=== PATIENT | female | born 1940 | race Caucasian/White ===

== ENCOUNTER 2016-05-09 15:38 | Emergency (ER) | payer MEDICARE, OTHER ==
[2016-05-09 15:46] VITALS: TEMP 97.7
--- NOTE | 2016-05-09 16:57 | CPEKG ---
Heart Rate: 83 RR Interval: 723 P-R Interval: 160 QRSD Interval: 110 QT Interval: 328 QTC Interval: 386 P [place]: 44 QRS [place]: -28 T Wave [place]: 179 EKG Severity - ABNORMAL ECG - EKG Impression: SINUS RHYTHM EKG Impression: NONSPECIFIC INTRAVENTRICULAR CONDUCTION DELAY EKG Impression: BORDERLINE R WAVE PROGRESSION, ANTERIOR LEADS EKG Impression: MINIMAL ST DEPRESSION, LATERAL LEADS Electronically Signed By: Mike Adhikari 11-May-2016 09:42:20
--- NOTE | 2016-05-09 17:12 | EDPHY ---
HPI/HX/ROS/PE/MDM Narrative: CHIEF COMPLAINT: Shortness of breath HPI: The patient is a 76 y/o female, with a significant cardiac history, complaining of shortness of breath and a cough for the last few days. She has a history of hypertension and CAD with an LAD stent placed in 2010. She says this past week a "cold went into my throat and down into my chest and stayed there like cement!" Her cough is nonproductive and not associated with fever, chest pain, or leg swelling. She does have associated rhinorrhea. REVIEW OF SYSTEMS: Aside from elements discussed in the HPI, a comprehensive 10-point review of systems was reviewed and is negative. PMH: Hypertension, LAD stent 2010, cataract surgery, cholecystectomy, hysterectomy, salpingo-oophorectomy SOCIAL HISTORY: Prior medical records reviewed including admission 04/09/10 for nausea and dizziness and ultimately received an LAD stent. PHYSICAL EXAM: General:Patient is alert, in no acute distress. ENT:Eyes are normal to inspection. ENT inspection shows rhinorrhea, otherwise normal. Neck: Normal inspection. Full range of motion. Respiratory:No respiratory distress. Breath sounds normal bilaterally. Mild rales and mils expiratory wheezing bilaterally. Cardiovascular: Regular rate and rhythm. Strong peripheral pulses. Normal cap refill. Abdomen:The abdomen is nontender to palpation. There are no peritoneal signs. There are normal bowel sounds. Back: Normal to inspection. No tenderness to palpation. Skin: Normal color. No rash. Warm and dry. Extremities: Normal appearance. Full range of motion. Neuro: Oriented x3. Normal motor function. Normal sensory function. ED Course: Study: Chest x-ray Indication: Dyspnea, cough Results: Chest x-ray was obtained. The results of the study are findings consistent with airways disease are noted with no superimposed pneumonia identified. The study was read by the radiologist, Dr. Gardner. I viewed the images myself on the PACS system. The 12 lead EKG was interpreted by myself. See hard copy and/or "tracemaster" electronic copy for interpretation. 1754: Reevaluated patient and discussed work up. She is declining further work up for her symptoms and is requesting antibiotics and cough medication to take home. She will be discharged with azithromycin, Tessalon pearls, and recommendation to follow up with her PCP as needed. She agrees with plan. 1809: RN went to discharge patient and noticed her SpO2 was at 87%. Will abort plan to discharge. 1850: Reevaluated patient and discussed hypoxemia. After we negotiated at length , she agrees to blood work. Labs draw including CBC, CHEM, troponin, BNP. MDM: This patient presents with signs and symptoms of bronchitis complicated by a low oxygen readings. The patient is in no acute distress. She adamantly refuses admission to the hospital. She understands that she is at risk of worsening of condition given hypoxia. She promises to follow up with her physician and return for any worsening of condition. She appears to have capacity to make this decision and her agrees. General Time Seen by Provider: 05/09/16 16:33 Initial Vital Signs: Initial Vital Signs O2 Sat (%) 94 05/09/16 15:38 O2 Delivery Mode Room Air O2 (L/minute) 2 Allergies/Adverse Reactions: bacitracin [From Neosporin] Allergy (Intermediate, Verified 05/09/16 15:46) Hives bacitracin zinc [From Neosporin] Allergy (Intermediate, Verified 05/09/16 15:46) Hives gramicidin D [From Neosporin] Allergy (Intermediate, Verified 05/09/16 15:46) Hives levofloxacin [From Levaquin] Allergy (Intermediate, Verified 05/09/16 15:46) tongue swells/breaks out neomycin sulfate [From Neosporin] Allergy (Intermediate, Verified 05/09/16 15:46 ) Hives polymyxin B [From Neosporin] Allergy (Intermediate, Verified 05/09/16 15:46) Hives polymyxin B sulfate [From Neosporin] Allergy (Intermediate, Verified 05/09/16 15 :46) Hives aspirin [From Percodan] Allergy (Verified 05/09/16 15:46) oxycodone HCl [From Percodan] Allergy (Verified 05/09/16 15:46) oxycodone terephthalate [From Percodan] Allergy (Verified 05/09/16 15:46) FULVISON Allergy (Uncoded 04/09/10 09:16) Unknown Home Medications: Medication Instructions Recorded AZITHROMYCIN [Z-PACK] 250 mg PO DAILY 5 Days 05/09/16 Benzonatate [Tessalon Pearles (RX)] 100 mg PO TID PRN #15 cap 05/09/16 Candesartan Cilexetil [Atacand] 4 mg PO DAILY 05/09/16 HYDROCHLOROTHIAZIDE 12.5 mg PO DAILY 05/09/16 [HYDROCHLOROTHIAZIDE] Departure - Departure Disposition: Home, Routine, Self-Care Clinical Impression: Cough, Shortness of breath, Bronchitis, Hypoxemia Condition: Good Instructions: Benzonatate (By mouth), Azithromycin (By mouth), Acute Bronchitis (ED) Additional Instructions: 1. Take azithromycin as prescribed. Be sure to complete the entire prescription. 2. Use Tessalon pearls as prescribed when needed for cough. 3. Follow up with your primary care provider early next week for symptoms not improved. Referrals: Sahra Chan, PAC [Primary Care Provider] - As per Instructions Prescriptions: AZITHROMYCIN [Z-PACK] 250 mg PO DAILY 5 Days Benzonatate [Tessalon Pearles (RX)] 100 mg PO TID PRN #15 cap PRN Reason: Cough, Severe Report Scribed for: Hugo Tinoco Report Scribed by: Asha Pete Date of Report: 05/09/16 Time of Report: 17:12 Physician Review and Approval Statement: Portions of this note were transcribed by an ED scribe. I personally performed the history, physical exam, and medical decision making; and confirm the accuracy of the information in the transcribed note.
[2016-05-09 19:27] LABS: % IMMATURE GRANULYOCYTES 0.1 % (0.0-1.1); ABSOLUTE IMMATURE GRANULOCYTES 0.01 10^3/uL (0.00-0.10); ADD DIFF? NO; ADD MORPH? NO; ADD SCAN? NO; ATYPICAL LYMPHOCYTE FLAG 10 (0-99); FRAGMENT RBC FLAG 0 (0-99); HEMATOCRIT 42.1 % (38.0-47.0); HEMOGLOBIN 13.4 g/dL (12.6-16.3); LEFT SHIFT FLG 0 (0-99); LIPEMIA HEMOLYSIS FLAG 80 (0-99); MEAN CELL HEMOGLOBIN 25.8 pg (27.9-34.1); MEAN CELL HEMOGLOBIN CONCENTR. 31.8 g/dL (32.4-36.7); MEAN CELL VOLUME 81.1 fL (81.5-99.8); MEAN PLATELET VOLUME 10.1 fL (8.7-11.7); PLATELET CLUMPS FLAG 0 (0-99); PLATELET COUNT 137 10^3/uL (150-400); RED BLOOD CELL COUNT 5.19 10^6/uL (4.18-5.33); RED CELL DISTRIBUTION WIDTH 14.1 % (11.5-15.2)
[2016-05-09 19:45] LABS: ANION GAP 10 mEq/L (8-16); CALCIUM 8.8 mg/dL (8.5-10.4); CARBON DIOXIDE 28 mEq/l (22-31); CHLORIDE 100 mEq/L (97-110); CREATININE 0.9 mg/dL (0.6-1.0); GLOMERULAR FILTRATION RATE > 60; GLUCOSE 97 mg/dL (70-100); POTASSIUM 4.5 mEq/L (3.5-5.2); SODIUM 138 mEq/L (134-144); SPECIMEN HEMOLYSIS 161
[2016-05-09 19:57] LABS: TROPONIN I 0.017 ng/mL (0-0.034)
[2016-05-09] MEDS ORDERED: AZITHROMYCIN 250 MG TAB PO ONE (20:01)
[2016-05-09 20:22] VITALS: BP 121/72; PULSE 76; RESP 18; O2SAT 89
== END 2016-05-09 20:21 | disposition home or self-care (01) ==
DX: J20.9 Acute bronchitis, unspecified (principal); R09.02 Hypoxemia; I10 Essential (primary) hypertension

== ENCOUNTER 2016-05-11 12:36 | Inpatient (IN) | payer OTHER, MEDICARE ==
--- NOTE | 2016-05-11 12:55 | EDPHY ---
H & P Stated Complaint: Patient sent by PCP for low 02 saturation Time Seen by Provider: 05/11/16 12:49 HPI/ROS: CHIEF COMPLAINT: Cough, shortness of breath. HISTORY OF PRESENT ILLNESS: The patient is a 76-year-old female who presents with productive cough and difficulty breathing. She was seen in the ED on Wednesday and diagnosed with bronchitis. She has been taking Azithromycin since then. Since discharge she has had increased difficulty breathing and shortness of breath worsened when she lies flat. Her cough is productive with clear sputum. She had a low-grade fever last night. She visited her primary care provider earlier today and her oxygen was noted to be 73% there. No chills, chest pain, palpitations, vomiting, diarrhea, urinary complaints, headache, lightheadedness. She is not anticoagulated on blood-thinners. REVIEW OF SYSTEMS: Aside from elements discussed in the HPI, a comprehensive 10-point review of systems was reviewed and is negative. PAST MEDICAL HISTORY: Hypertension, LAD stent in 2010, hysterectomy, salpingo- oophorectomy, cholecystectomy, cataract surgery. SOCIAL HISTORY: . VITAL SIGNS: Reviewed by me GENERAL: Elderly female, bright, alert, very frequent cough. Slightly short of breath. HEENT: Atraumatic. Eyes: No icterus, no injection. Mouth: moist mucous membranes. No erythema or lesions. Neck: supple with no adenopathy. LUNGS: Crackles at bilateral bases, right greater than left. Scattered wheezes. No rhonchi or rales. CARDIAC: Regular rate and rhythm, no rubs, murmurs or gallops. ABDOMEN: Soft, nontender, nondistended, bowel sounds normal. BACK: No CVA tenderness. EXTREMITIES: No trauma. No edema. Range of motion is normal throughout. NEURO: Alert and oriented, grossly nonfocal. SKIN: Warm and dry, no rash. PSYCHIATRIC: Normal mentation, no agitation. Portions of this note were transcribed by a medical file clerk. I personally performed a history, physical exam, medical decision making, and confirmed accuracy of information the transcribed note. Source: Patient Exam Limitations: No limitations - Personal History Current Tetanus/Diphtheria Vaccine: Yes Current Tetanus Diphtheria and Acellular Pertussis (TDAP): Yes - Medical/Surgical History Hx Asthma: Yes Hx Chronic Respiratory Disease: Yes Hx Diabetes: No Hx Cardiac Disease: Yes Hx Renal Disease: No Hx Cirrhosis: No Hx Alcoholism: No Hx HIV/AIDS: No Hx Splenectomy or Spleen Trauma: No Other PMH: HTN - Social History Smoking Status: Former smoker Constitutional: Initial Vital Signs Heart Rate 90 05/11/16 12:42 Respiratory Rate 18 05/11/16 12:42 Blood Pressure 153/79 H 05/11/16 12:42 O2 Sat (%) 75 L 05/11/16 12:42 O2 Delivery Mode Room Air O2 (L/minute) 3 Allergies/Adverse Reactions: bacitracin [From Neosporin] Allergy (Intermediate, Verified 05/09/16 15:46) Hives bacitracin zinc [From Neosporin] Allergy (Intermediate, Verified 05/09/16 15:46) Hives gramicidin D [From Neosporin] Allergy (Intermediate, Verified 05/09/16 15:46) Hives levofloxacin [From Levaquin] Allergy (Intermediate, Verified 05/09/16 15:46) tongue swells/breaks out neomycin sulfate [From Neosporin] Allergy (Intermediate, Verified 05/09/16 15:46 ) Hives polymyxin B [From Neosporin] Allergy (Intermediate, Verified 05/09/16 15:46) Hives polymyxin B sulfate [From Neosporin] Allergy (Intermediate, Verified 05/09/16 15 :46) Hives aspirin [From Percodan] Allergy (Verified 05/09/16 15:46) oxycodone HCl [From Percodan] Allergy (Verified 05/09/16 15:46) oxycodone terephthalate [From Percodan] Allergy (Verified 05/09/16 15:46) FULVISON Allergy (Uncoded 04/09/10 09:16) Unknown Home Medications: Medication Instructions Recorded Candesartan Cilexetil [Atacand] 4 mg PO DAILY 05/09/16 HYDROCHLOROTHIAZIDE 12.5 mg PO DAILY 05/09/16 [HYDROCHLOROTHIAZIDE] Colestipol HCl [Colestipol HCl] 2.5 g PO DAILY 05/11/16 Medical Decision Making - Diagnostics EKG Interpretation: 12-LEAD EKG: Please see the full report in Trace Master. My interpretation: Normal sinus rhythm, borderline IVCD. Imaging: X-ray chest was obtained. I viewed the images myself on the PACS system. My interpretation of the images is: no acute cardiopulmonary disease. The radiologist interpretation is pending at this time. I discussed the x-ray findings with the patient. ED Course/Re-evaluation: An IV was established and labs ordered. Chest x-ray obtained. 3ml IH Albuterol administered for bronchospasm. Troponin elevated at .133. D-dimer normal. BNP elevated at 18 30, BNP was normal 2 days ago. 1359: Consulted with Ashia Lyons, hospitalist. She accepts admission for Dr. Bacon. Suspect patient's significant hypoxia shortness of breath as well as her pulmonary examination with crackles and coughing may represent cardiac failure concomitant with infectious causes. 1433: Reassessed patient. She does not feel improved after DuoNeb but on exam she does have fewer wheezes. She still has bibasilar crackles, worse on the left than the right. She is still coughing persistently. Differential Diagnosis: Differential diagnosis for the patient's shortness of breath was considered including but not limited to pulmonary infectious processes, COPD exacerbation, pulmonary emboli, pulmonary edema, congestive heart failure, and cardiac causes. Consult/Admit Bed Type: Dr. Ronnie Bacon, U - Data Points Laboratory Results: Laboratory Results 05/11/16 13:05 05/11/16 13:05 05/11/16 05/11/16 05/11/16 13:35 13:06 13:05 WBC RBC Hgb Hct MCV MCH MCHC RDW Plt Count MPV Neut % (Auto) Lymph % (Auto) Villal[place] % (Auto) Eos % (Auto) Baso % (Auto) Nucleat RBC Rel Count Absolute Neuts (auto) Absolute Lymphs (auto) Absolute Monos (auto) Absolute Eos (auto) Absolute Basos (auto) Absolute Nucleated RBC Immature Gran % Immature Gran # D-Dimer 0.34 ug/mLFEU ug/mLFEU (0.00-0.50) VBG Lactic Acid Sodium Potassium Chloride Carbon Dioxide Anion Gap BUN Creatinine Estimated GFR Glucose Calcium Total Bilirubin Conjugated Bilirubin Unconjugated Bilirubin AST ALT Alkaline Phosphatase Troponin I NT-Pro-B Natriuret Pep 1820 pg/mL H pg/mL (0-125) Total Protein Albumin Influenza A & B (PCR) NEGATIVE FOR FLU (NEGATIVE) 05/11/16 05/11/16 05/11/16 13:05 13:05 13:05 WBC 7.47 10^3/uL 10^3/uL (3.80-9.50) RBC 5.18 10^6/uL 10^6/uL (4.18-5.33) Hgb 13.0 g/dL g/dL (12.6-16.3) Hct 40.7 % % (38.0-47.0) MCV 78.6 fL L fL (81.5-99.8) MCH 25.1 pg L pg (27.9-34.1) MCHC 31.9 g/dL L g/dL (32.4-36.7) RDW 14.4 % % (11.5-15.2) Plt Count 164 10^3/uL 10^3/uL (150-400) MPV 9.9 fL fL (8.7-11.7) Neut % (Auto) 76.6 % H % (39.3-74.2) Lymph % (Auto) 12.6 % L % (15.0-45.0) [place] % (Auto) 10.3 % % (4.5-13.0) Eos % (Auto) 0.0 % L % (0.6-7.6) Baso % (Auto) 0.1 % L % (0.3-1.7) Nucleat RBC Rel Count 0.0 % % (0.0-0.2) Absolute Neuts (auto) 5.72 10^3/uL 10^3/uL (1.70-6.50) Absolute Lymphs (auto) 0.94 10^3/uL L 10^3/uL (1.00-3.00) Absolute Monos (auto) 0.77 10^3/uL 10^3/uL (0.30-0.80) Absolute Eos (auto) 0.00 10^3/uL L 10^3/uL (0.03-0.40) Absolute Basos (auto) 0.01 10^3/uL L 10^3/uL (0.02-0.10) Absolute Nucleated RBC 0.00 10^3/uL 10^3/uL (0-0.01) Immature Gran % 0.4 % % (0.0-1.1) Immature Gran # 0.03 10^3/uL 10^3/uL (0.00-0.10) D-Dimer VBG Lactic Acid 1.4 mmol/L mmol/L (0.7-2.1) Sodium 140 mEq/L mEq/L (134-144) Potassium 3.8 mEq/L mEq/L (3.5-5.2) Chloride 99 mEq/L mEq/L (97-110) Carbon Dioxide 29 mEq/l mEq/l (22-31) Anion Gap 12 mEq/L mEq/L (8-16) BUN 21 mg/dL mg/dL (7-23) Creatinine 1.0 mg/dL mg/dL (0.6-1.0) Estimated GFR 54 Glucose 111 mg/dL H mg/dL (70-100) Calcium 9.0 mg/dL mg/dL (8.5-10.4) Total Bilirubin 0.9 mg/dL mg/dL (0.1-1.4) Conjugated Bilirubin 0.3 mg/dL mg/dL (0.0-0.5) Unconjugated Bilirubin 0.6 mg/dL mg/dL (0.0-1.1) AST 26 IU/L IU/L (14-46) ALT 28 IU/L IU/L (9-52) Alkaline Phosphatase 56 IU/L IU/L (38-126) Troponin I 0.133 ng/mL H ng/mL (0-0.034) NT-Pro-B Natriuret Pep Total Protein 6.8 g/dL g/dL (6.3-8.2) Albumin 4.0 g/dL g/dL (3.5-5.0) Influenza A & B (PCR) Medications Given: Discontinued Medications Albuterol (Proventil Neb) 3 ml IH EDNOW ONE Stop: 05/11/16 14:36 Last Admin: 05/11/16 14:56 Dose: 3 ml Albuterol/Ipratropium (Duoneb) 3 ml IH EDNOW ONE Stop: 05/11/16 13:15 Last Admin: 05/11/16 13:35 Dose: 3 ml Sodium Chloride (Ns) 1,000 mls @ 0 mls/hr IV ONCE ONE PRN Reason: Wide Open Stop: 05/11/16 13:01 Last Admin: 05/11/16 13:30 Dose: 1,000 mls Ceftriaxone Sodium 2 gm/ (Dextrose) 50 mls @ 100 mls/hr IV EDNOW ONE PRN Reason: Protocol Stop: 05/11/16 14:22 Last Admin: 05/11/16 14:39 Dose: 50 mls Methylprednisolone Sodium Succinate (Solu-Medrol) 125 mg IVP EDNOW ONE Stop: 05/11/16 14:35 Last Admin: 05/11/16 14:57 Dose: 125 mg Departure - Departure Disposition: [facility] Inpatient Acute Clinical Impression: Bronchitis, Shortness of breath, Elevated troponin, Congestive heart failure Condition: Fair Report Scribed for: Celeste Zazueta Report Scribed by: Steve Medina Date of Report: 05/11/16 Time of Report: 12:50
[2016-05-11] MEDS ORDERED: NS 1,000 ML IV ONE (13:00)
[2016-05-11] MEDS ORDERED: IPRATROPIUM/ALBUTEROL 3 ML DEYVIAL ONE (13:14)
[2016-05-11] MEDS ORDERED: IPRATROPIUM/ALBUTEROL 3 ML DEYVIAL IH ONE (13:14)
[2016-05-11 13:21] LABS: % IMMATURE GRANULYOCYTES 0.4 % (0.0-1.1); ABSOLUTE IMMATURE GRANULOCYTES 0.03 10^3/uL (0.00-0.10); ADD DIFF? NO; ADD MORPH? NO; ADD SCAN? NO; ATYPICAL LYMPHOCYTE FLAG 30 (0-99); FRAGMENT RBC FLAG 0 (0-99); HEMATOCRIT 40.7 % (38.0-47.0); LEFT SHIFT FLG 0 (0-99); LIPEMIA HEMOLYSIS FLAG 80 (0-99); MEAN CELL HEMOGLOBIN 25.1 pg (27.9-34.1); MEAN CELL HEMOGLOBIN CONCENTR. 31.9 g/dL (32.4-36.7); MEAN CELL VOLUME 78.6 fL (81.5-99.8); MEAN PLATELET VOLUME 9.9 fL (8.7-11.7); PLATELET CLUMPS FLAG 0 (0-99); PLATELET COUNT 164 10^3/uL (150-400); RED BLOOD CELL COUNT 5.18 10^6/uL (4.18-5.33); RED CELL DISTRIBUTION WIDTH 14.4 % (11.5-15.2)
[2016-05-11 13:39] LABS: ALANINE AMINOTRANSFERASE 28 IU/L (9-52); ALKALINE PHOSPHATASE 56 IU/L (38-126); ANION GAP 12 mEq/L (8-16); ASPARTATE AMINOTRANSFERASE 26 IU/L (14-46); BILIRUBIN,TOTAL 0.9 mg/dL (0.1-1.4); BILIRUBIN-CONJUGATED 0.3 mg/dL (0.0-0.5); BILIRUBIN-UNCONJUGATED 0.6 mg/dL (0.0-1.1); CARBON DIOXIDE 29 mEq/l (22-31); CHLORIDE 99 mEq/L (97-110); GLOMERULAR FILTRATION RATE 54; GLUCOSE 111 mg/dL (70-100); POTASSIUM 3.8 mEq/L (3.5-5.2); TOTAL PROTEIN 6.8 g/dL (6.3-8.2)
[2016-05-11 13:50] LABS: TROPONIN I 0.133 ng/mL (0-0.034)
[2016-05-11] MEDS ORDERED: cefTRIAXone 2 GM in D5W 50 ML IV ONE (13:53)
--- NOTE | 2016-05-11 14:06 | CPEKG ---
Heart Rate: 86 RR Interval: 698 P-R Interval: 144 QRSD Interval: 108 QT Interval: 372 QTC Interval: 445 P [place]: 58 QRS [place]: -32 T Wave [place]: -83 EKG Severity - ABNORMAL ECG - EKG Impression: SINUS RHYTHM EKG Impression: BORDERLINE IVCD WITH LAD EKG Impression: NONSPECIFIC REPOL ABNORMALITY, DIFFUSE LEADS Electronically Signed By: Celeste Zazutea 11-May-2016 17:53:12
[2016-05-11] MEDS ORDERED: ASPIRIN 81 MG CHEWABLE TAB ONE (14:10)
[2016-05-11 14:17] LABS: SODIUM 140 mEq/L (134-144)
[2016-05-11] MEDS ORDERED: methylPREDNISolone SOD SUCC 125 MG/2 ML VIAL IVP ONE (14:34)
[2016-05-11] MEDS ORDERED: ALBUTEROL 3 ML DEYVIAL IH ONE (14:35)
[2016-05-11] MEDS ORDERED: ALBUTEROL 60 PUFFS/8 GM MDI IH PRN (15:09)
[2016-05-11] MEDS ORDERED: ZOLPIDEM TARTRATE 5 MG TAB PO PRN (15:09)
[2016-05-11] MEDS ORDERED: PROMETHAZINE HCL 25 MG/ML INJ IVP PRN (15:09)
[2016-05-11] MEDS ORDERED: IOPAMIDOL (ISOVUE 370) 100 ML BTL IV ONE (15:17)
--- NOTE | 2016-05-11 15:28 | PDGENHP ---
History and Physical History and Physical: HISTORY AND PHYSICAL CC: cough and shortness of breath HISTORY: This patient started with cough and chest congestion about 5 days ago. The cough has worsened but has a nonproductive cough. Only time she has had any fever is a 100 degree temperature last evening. There were no rigors with that. She has not had any upper respiratory symptoms otherwise, and is not any chest pain, leg swelling or leg pain. However importantly she has began to get short of breath. This probably started 2 days ago but has progressed to the point where she has significant exertional dyspnea after walking just about 5 feet. She also does notice orthopnea and significant increasing coughing with lying down. She was seen here 2 days ago and had unremarkable labs chest x -ray but was started on azithromycin. Things have actually worsened since she has been on the azithromycin. She has no history of lung disease but smoked for 8 years having quit 40 years ago. She has a history of a left coronary stent in 2010. The only time she had any heart failure was when she presented at that time with some shortness of breath. Dr. Singer is her air brush operator ROS: A comprehensive 10 system review revealed no other significant findings PAST MEDICAL HISTORY: Coronary artery disease with left anterior descending stent 2010 Hypertension Chronic diarrhea after cholecystectomy Cholecystectomy Cataract surgery Hysterectomy and ovaries are out FAMILY MEDICAL HISTORY: mother had myocardial infarction, father had stroke, both at older ages in their 70s and 80s SOCIAL HISTORY: she is and her is here at the bedside with her and very supportive. He is her surrogate decision maker Quit smoking 40 years ago after 8 years of smoking, no alcohol or drugs She is a retired commercial management accountant MEDICATIONS: The patients list has been reconciled by our clinical pharmacist in the EMR. I have reviewed the list and ordered appropriate medicines. PHYSICAL EXAMINATION: Vital Signs: mild systolic hypertension upon arrival which has now normalized, otherwise normal vitals with no fever She is hypoxemic requiring oxygen which is new for her Minister Helper: sinus rhythm Examination: General: alert, oriented, good mentation, relaxed Skin: warm, dry, good color, no rash HEENT: normal Neck: no mass or jvd Resps: relaxed but she coughs frequently and cough with each effort to take a deep breath Lungs: clear breath sounds Heart: regular, no murmur Abdomen: soft, nondistended, nontender, +BS, no mass Upper Extremities: normal Lower Extremities: no edema, warm No Bleeding or bruising Neurologic: normal speech/language, normal penetration tester, no focal weakness IV site: looks normal LABORATORY DATA: a D-dimer was ordered but is pending, troponin 2 days ago was unremarkable but is minimally elevated at 0.13 today RADIOLOGY STUDIES: I reviewed chest x-rays from today and 2 days ago both done here, my personal interpretation: There is no for infiltrate, heart failure, mass, infusion in either chest x-ray. The radiologist is mentioning airways disease but there is not hyperexpansion of the lungs on my review these images. There may be some bronchitic changes. 12 lead EKG, my personal interpretation of the tracing: sinus rhythm, with some diffuse ST segment abnormality associated with a conduction abnormality that is nonspecific. This is unchanged from 2 days ago. ASSESSMENT: * ACUTE RESPIRATORY FAILURE * UNCERTAIN MECHANISM OF HYPOXEMIA -Given her smoking history suspect he may have some underlying COPD but could not rule out PE at this time ; there is nothing to explain her hypoxemia and shortness of breath based on a coronary basis * ELEVATED CARDIAC TROPONIN AND ORTHOPNEA IN A PATIENT WITH KNOWN CORONARY DISEASE - my suspicion for acute coronary syndrome is moderately low at this point but will go through the steps of ruling her out for [place] and if no other cause of her presentation is identified she may need coronary evaluation; when she presented with [place] in 2010 she had shortness of breath without chest pain * MICROCYTOSIS, WHICH WAS PRESENT ON HER LABORATORY DATA IN 2010 - decrease necessity of this would suggest this may be hemoglobinopathy as opposed iron deficiency but will check iron levels PLANS: - inpatient admission due to her acute respiratory failure, is not felt that she will recover within 48 hours to go home -CT scan chest to look for PE or other causes of her hypoxemia -PFTs to check for evidence of obstructive disease -For the moment will continue her azithromycin although may consider stopping this unless there is more definite evidence of a bacterial infection found -Repeat cardiac enzymes and EKG, consider further risk stratification or coronary evaluation depending on the results of that and her progress and other diagnostic findings -Check iron levels -DVT prophylaxis I have reviewed the patient's case in detail with Dr.KIM SHAH I have reviewed the patient's past medical records as part of this assessment, including PREVIOUS HOSPITALIZATION INCLUDING PHYSICIAN NOTES, LABS, EKGS
[2016-05-11 15:37] LABS: COLOR YELLOW; LEUKOCYTE ESTERASE,URINE 3+ (NEGATIVE); NITRITE,URINE NEGATIVE (NEGATIVE)
[2016-05-11 15:42] LABS: BACTERIA TRACE /hpf (NONE SEEN); MUCUS TRACE /lpf (NONE-1+)
[2016-05-11] MEDS: IPRATROPIUM/ALBUTEROL 3 ML DEYVIAL IH SCH (20:38)
[2016-05-12] MEDS: IPRATROPIUM/ALBUTEROL 3 ML DEYVIAL IH SCH ×4 (02:53→20:31)
[2016-05-12] MEDS: BENZONATATE 100 MG CAP PO PRN ×2 (03:33→07:47)
[2016-05-12 05:55] LABS: % IMMATURE GRANULYOCYTES 0.2 % (0.0-1.1); ABSOLUTE IMMATURE GRANULOCYTES 0.01 10^3/uL (0.00-0.10); ADD DIFF? NO; ADD MORPH? NO; ADD SCAN? NO; ATYPICAL LYMPHOCYTE FLAG 50 (0-99); FRAGMENT RBC FLAG 0 (0-99); HEMATOCRIT 34.3 % (38.0-47.0); HEMOGLOBIN 10.9 g/dL (12.6-16.3); LEFT SHIFT FLG 0 (0-99); LIPEMIA HEMOLYSIS FLAG 80 (0-99); MEAN CELL HEMOGLOBIN 25.6 pg (27.9-34.1); MEAN CELL HEMOGLOBIN CONCENTR. 31.8 g/dL (32.4-36.7); MEAN CELL VOLUME 80.7 fL (81.5-99.8); MEAN PLATELET VOLUME 10.3 fL (8.7-11.7); PLATELET CLUMPS FLAG 0 (0-99); PLATELET COUNT 114 10^3/uL (150-400); RED BLOOD CELL COUNT 4.25 10^6/uL (4.18-5.33); RED CELL DISTRIBUTION WIDTH 14.7 % (11.5-15.2)
[2016-05-12 06:09] LABS: % SATURATION 10 % (20-55); TOTAL IRON BINDING CAPACITY 232 ug/dL (260-490)
[2016-05-12] MEDS: ENOXAPARIN 40 MG/0.4 ML SYR SC SCH (07:47)
--- NOTE | 2016-05-12 09:07 | CPEKG ---
Heart Rate: 69 RR Interval: 870 P-R Interval: 152 QRSD Interval: 110 QT Interval: 416 QTC Interval: 446 P [place]: 47 QRS [place]: -32 T Wave [place]: 5 EKG Severity - ABNORMAL ECG - EKG Impression: SINUS RHYTHM EKG Impression: VENTRICULAR PREMATURE COMPLEX EKG Impression: NONSPECIFIC INTRAVENTRICULAR CONDUCTION DELAY EKG Impression: CONSIDER LVH WITH SECONDARY REPOLARIZATION ABNORMALITY Electronically Signed By: Mike Adhikari 12-May-2016 10:55:05
[2016-05-12] MEDS ORDERED: CANDESARTAN CILEXETIL 4 MG PO SCH (09:15)
[2016-05-12] MEDS: HYDROCHLOROTHIAZIDE 25 MG TAB PO SCH (09:30)
[2016-05-12] MEDS: AZITHROMYCIN 250 MG TAB PO SCH (09:30)
[2016-05-12] MEDS: CANDESARTAN CILEXETIL 8 MG TAB PO SCH (09:46)
--- NOTE | 2016-05-12 10:34 | SOAPPROG ---
SOAP Progress Note Assessment/Plan: Assessment: Cardiology (Enmanuel) 76 y/o F with history of ME and LAD stenting by Dr. Singer in March 2010, admitted with dyspnea unresponsive to course of antibiotics in the setting of mildly elevated troponins, elevated ntBNP. She has not been seen or evaluated in our office since January 2011. Her last echocardiogram and nuclear stress test in 2010 were overall unremarkable. Plan: 1. Echocardiogram today. 2. We are available to consult today if requested. 05/12/16 10:35 Objective: Vital Signs Temp Pulse Resp BP Pulse Ox 36.6 C 71 20 140/78 H 95 05/12/16 07:29 05/12/16 07:29 05/12/16 07:29 05/12/16 07:29 05/12/16 07:29 Laboratory Results 05/12/16 05:14 05/11/16 05/12/16 05/13/16 05:59 05:59 05:59 Intake Total 1460 Output Total 650 Balance 810 ICD10 Worksheet Patient Problems: Problems Problem Status Onset Bronchitis Acute Elevated troponin Acute Shortness of breath Acute
--- NOTE | 2016-05-12 11:10 | HOSPPROG ---
Hospitalist Progress Note Assessment/Plan: Acute hypoxemic respiratory failure suspect secondary to viral bronchitis with RAD - flu neg. Requiring 3 LPM O2 by NC. Reviewed CXR and CTPA, which was negative for PE. -Cont QID nebs, prn Albuterol -Add steroids given wheezing -anti-tussives, supportive care -will complete course of Azithromycin, stop date 05/14 -recommend outpt PFT's when she has returned to baseline CAD with h/o LAD stent in 2010, mild troponin elevation on admission - trop now normalized, suspect strain. She is chest pain free. -echo planned to eval for WMA -will consult cardiology if echo abnormal or she develops symptoms c/w ACS, but suspicion for ACS is low at this time -outpt stress testing Anemia - iron studies c/w ACD, follow Hypertension - adequate control, resume outpt meds DVT PPLX - Lovenox Full code Dispo - cont inpt Subjective: Pt has persistent bronchospastic cough. No fevers. Denies CP, some SOB associated with coughing. Objective: Vital Signs Temp Pulse Resp BP Pulse Ox 36.6 C 71 20 140/78 H 95 05/12/16 07:29 05/12/16 07:29 05/12/16 07:29 05/12/16 07:29 05/12/16 07:29 Laboratory Results 05/12/16 05:14 05/11/16 05/12/16 05/13/16 05:59 05:59 05:59 Intake Total 1460 Output Total 650 Balance 810 - Physical Exam Constitutional: no apparent distress Eyes: PERRL Ears, Nose, Mouth, Throat: moist mucous membranes Cardiovascular: regular rate and rhythym Respiratory: no respiratory distress, expiratory wheeze Gastrointestinal: normoactive bowel sounds, soft, non-tender abdomen Skin: warm Musculoskeletal: full muscle strength Neurologic: AAOx3 Psychiatric: interacting appropriately ICD10 Worksheet Patient Problems: Problems Problem Status Onset Bronchitis Acute Elevated troponin Acute Shortness of breath Acute
[2016-05-12] MEDS: predniSONE 20 MG TAB PO SCH (11:40)
[2016-05-12] MEDS: guaiFENesin 600 MG TAB.ER PO SCH ×2 (11:40→20:22)
[2016-05-12] MEDS: guaiFENesin/CODEINE PHOS 10 ML UDCUP PO PRN ×2 (11:44→20:22)
[2016-05-12] MEDS: COLESTIPOL HCL 5 GM PO SCH (14:14)
[2016-05-12] MEDS: ACETAMINOPHEN 325 MG TAB PO PRN (15:45)
[2016-05-13] MEDS: BENZONATATE 100 MG CAP PO PRN (00:14)
[2016-05-13] MEDS: guaiFENesin/CODEINE PHOS 10 ML UDCUP PO PRN ×4 (03:13→20:51)
[2016-05-13 05:45] LABS: HEMATOCRIT 34.9 % (38.0-47.0); HEMOGLOBIN 10.8 g/dL (12.6-16.3); MEAN CELL HEMOGLOBIN CONCENTR. 30.9 g/dL (32.4-36.7); MEAN CELL VOLUME 80.8 fL (81.5-99.8); RED BLOOD CELL COUNT 4.32 10^6/uL (4.18-5.33); RED CELL DISTRIBUTION WIDTH 14.2 % (11.5-15.2)
[2016-05-13] MEDS: IPRATROPIUM/ALBUTEROL 3 ML DEYVIAL IH SCH ×4 (05:58→21:24)
[2016-05-13] MEDS: HYDROCHLOROTHIAZIDE 25 MG TAB PO SCH (07:56)
[2016-05-13] MEDS: ACETAMINOPHEN 325 MG TAB PO PRN (07:57)
[2016-05-13] MEDS: CANDESARTAN CILEXETIL 8 MG TAB PO SCH (07:57)
[2016-05-13] MEDS: predniSONE 20 MG TAB PO SCH (07:57)
[2016-05-13] MEDS: guaiFENesin 600 MG TAB.ER PO SCH ×2 (07:57→20:51)
[2016-05-13] MEDS: AZITHROMYCIN 250 MG TAB PO SCH (07:57)
[2016-05-13] MEDS: ENOXAPARIN 40 MG/0.4 ML SYR SC SCH (08:50)
--- NOTE | 2016-05-13 14:03 | HOSPPROG ---
Hospitalist Progress Note Assessment/Plan: Acute hypoxemic respiratory failure suspect secondary to viral bronchitis with RAD - flu neg. Requiring 3 LPM O2 by NC. Reviewed CXR and CTPA, which was negative for PE. -Cont QID nebs, prn Albuterol -cont steroids for RAD/wheezing component, day 2/5 -anti-tussives, supportive care -recommend outpt PFT's when she has returned to baseline, unable to perform here due to bronchospasm/cough -may need home O2 CAD with h/o LAD stent in 2010, mild troponin elevation on admission - trop now normalized, suspect strain. She is chest pain free. ASA allergic. Followed by Dr. Singer. -echo done yesterday, still not read -will consult cardiology if echo abnormal or she develops symptoms c/w ACS, but suspicion for ACS is low at this time -likely needs outpt stress testing -check lipid panel to determine indication for statin UTI - UA and Cx done in ED. Cx growing >100K Enterococcus. Sensitivities pending. Denies urinary symptoms, but she has had some dizziness, which is non- specific. -start Augmentin, await sensitivities Anemia - iron studies c/w ACD, follow Hypertension - adequate control, resume outpt meds DVT PPLX - Lovenox Full code Dispo - cont inpt Subjective: Pt feels a little better today, still on 3 LPM O2. Cough is a little better, less bronchospasm. She had what sounds like a vocal cord spasm on admission which was very distressing for her. Denies CP or SOB. She reports feeling dizzy with ambulation today, improved upon returning to bed. Denies urinary symptoms. Objective: Vital Signs Temp Pulse Resp BP Pulse Ox 36.6 C 81 20 147/69 H 93 05/13/16 11:41 05/13/16 11:41 05/13/16 11:41 05/13/16 11:41 05/13/16 11:41 Laboratory Results 05/13/16 05:00 05/12/16 05/13/16 05/14/16 05:59 05:59 05:59 Intake Total 1460 1300 Output Total 650 650 600 Balance 810 650 -600 - Physical Exam Constitutional: no apparent distress Eyes: PERRL Ears, Nose, Mouth, Throat: moist mucous membranes Cardiovascular: regular rate and rhythym Respiratory: no respiratory distress, expiratory wheeze Gastrointestinal: normoactive bowel sounds, soft, non-tender abdomen Skin: warm Musculoskeletal: full muscle strength Neurologic: AAOx3 Psychiatric: interacting appropriately ICD10 Worksheet Patient Problems: Problems Problem Status Onset Bronchitis Acute Shortness of breath Acute Elevated troponin Acute
--- NOTE | 2016-05-13 14:35 | ECHO ---
[id number] + + [address] : : [place] [address] : : [phone] + + Adult Echocardiographic Report + ------+ :Name: ELODIA ISSA FStudy Date: 05/12/2016 09:33 AM : : Hospital Admission Number: [id number] Locatio n: 222: :: 1940 Gender: Female Height: 65 in : :Age: 76 yrs Race: WH Weight: 190 lb : :Reason For Study: Eval LV Fx : : BSA: 1.9 meters 2 : :History: Elevated BNP, elevated Troponins : + ------+ MMode/2D Measurements \T\ Calculations IVSd: 0.89 cm LVIDd: 4.1 cm FS: 41.6 % Ao root diam: 2.8 cm LVPWd: 0.96 cm LVIDs: 2.4 cm EDV(Teich): 73.6 ml ACS: 1.5 cm ESV(Teich): 19.9 ml EF(Teich): 73.0 % Normal Measurement Values: + + :LVIDd (3.5-5.7cm) IVSd (0.6-1.1cm) LVPWd (0.6-1.1cm) Aortic Root (2.0-3.7cm)Left Atrium (1.5-4.0cm): :LV Vol(d) (76-115ml) LV Vol(s) (29-48ml) Ejec Fraction (50-65%)PV Dick (0.6- 1.2m/s) TV Dick (0.4-1.0m/s) : :MV E Dikc (0.8-1.0m/s)MV A Dick (0.3-1.0m/s)LVOT Dick (0.7-1.2m/s) Asc Ao Dick ( 0.9-1.8m/s) : + + Doppler Measurements \T\ Calculations MV E max dick: Ao V2 max: LV V1 max: MR max dick: 69.6 cm/sec 146.6 cm/sec 79.5 cm/sec 297.3 cm/sec MV A max dick: Ao max PG: LV V1 max PG: MR max P.4 cm/sec 8.6 mmHg 2.5 mmHg 35.3 mmHg MV E/A: 0.79 PA V2 max: 73.3 cm/sec PA max P.1 mmHg Left Ventricle The left ventricle is normal in size. There is normal left ventricular wall thickness. The left ventricular ejection fraction is normal. There is Doppler evidence for diastolic dysfunction. Ejection Fraction = 73%. The left ventricular wall motion is normal. Right Ventricle The right ventricle is normal in size and function. Atria The left atrial size is normal. Right atrial size is normal. Mitral Valve The mitral valve is normal in structure and function. There is no evidence of mitral valve prolapse. There is no mitral valve stenosis. There is trace to mild mitral regurgitation. Tricuspid Valve Normal tricuspid valve. No tricuspid regurgitation. Aortic Valve The aortic valve is normal in structure and function. The aortic valve is trileaflet. There is no aortic stenosis. There is no aortic insufficiency. Pulmonic Valve The pulmonic valve is normal in structure and function. There is no pulmonic valvular regurgitation. Great Vessels The aortic root is normal size. Pericardium/Pleural There is no pericardial effusion. There is a fat pad seen. Conclusion A complete two-dimensional transthoracic echocardiogram was performed (2D, M-mode, Doppler and color flow Doppler). The left ventricular ejection fraction is normal. There is Doppler evidence for diastolic dysfunction. Ejection Fraction = 73%. The left ventricular wall motion is normal. The right ventricle is normal in size and function. The left atrial size is normal. Right atrial size is normal. The mitral valve is normal in structure and function. There is trace to mild mitral regurgitation. Normal tricuspid valve The aortic valve is normal in structure and function. The aortic valve is trileaflet. There is no pericardial effusion. Final Reading Physician: Christy Tovar signed on 05/13/2016 02:30 PM Ordering Physician: Addi Jasso Performed By: Sanchez Nelson, F[facility]
[2016-05-13] MEDS: AMOXICILLIN/CLAVULANATE POT 875/125 MG TAB PO SCH ×2 (16:46→20:51)
[2016-05-13] MEDS: COLESTIPOL HCL 5 GM PO SCH (18:15)
[2016-05-14] MEDS: guaiFENesin/CODEINE PHOS 10 ML UDCUP PO PRN ×3 (03:10→18:27)
[2016-05-14 05:23] LABS: CHOLESTEROL 84 mg/dL (140-220); CHOLESTEROL/HDL RATIO 2.21 RATIO (1.00-4.44); HIGH DENSITY LIPOPROTEIN 38 mg/dL (40-85); LDL/HDL RATIO 0.84 RATIO (1.00-3.22); LOW DENSITY LIPOPROTEIN 32 mg/dL (80-100); NON-HIGH DENSITY LIPOPROTEIN 46 mg/dL (90-129); TRIGLYCERIDE 70 mg/dL (35-135); VERY LOW DENSITY LIPOPROTEINS 14 mg/dL (8-25)
[2016-05-14] MEDS: IPRATROPIUM/ALBUTEROL 3 ML DEYVIAL IH SCH ×4 (05:58→20:25)
[2016-05-14] MEDS: ENOXAPARIN 40 MG/0.4 ML SYR SC SCH ×2 (07:54→08:01)
[2016-05-14] MEDS: AMOXICILLIN/CLAVULANATE POT 875/125 MG TAB PO SCH ×2 (07:55→21:03)
[2016-05-14] MEDS: CANDESARTAN CILEXETIL 8 MG TAB PO SCH (07:55)
[2016-05-14] MEDS: HYDROCHLOROTHIAZIDE 25 MG TAB PO SCH (07:55)
[2016-05-14] MEDS: guaiFENesin 600 MG TAB.ER PO SCH ×2 (07:56→21:04)
[2016-05-14] MEDS: predniSONE 20 MG TAB PO SCH (07:59)
[2016-05-14] MEDS: COLESTIPOL HCL 5 GM PO SCH ×2 (10:45→17:29)
--- NOTE | 2016-05-14 16:46 | HOSPPROG ---
Hospitalist Progress Note Assessment/Plan: * RAD exacerbation due to bronchitis -prednisone, nebs, abx * Acute respiratory failure - wean O2 as able * CAD/stent -mild troponin elevation on admission - outpatient stress * Hyperlipidemia - statin refused * Possible enterococcus UTI -Augmentin for bronchitis - will all cover this as well Subjective: Better than yesterday. Doesn't feel ready for home yet Objective: Vital Signs Temp Pulse Resp BP Pulse Ox 36.3 C 99 20 138/79 H 89 L 05/14/16 15:48 05/14/16 15:48 05/14/16 15:48 05/14/16 15:48 05/14/16 15:48 Microbiology 05/11/16 15:25 Urine Culture - Final Urine,Catheterized Enterococcus Faecalis Laboratory Results 05/13/16 05:00 05/13/16 05/14/16 05/15/16 05:59 05:59 05:59 Intake Total 1300 1000 780 Output Total 650 1950 1280 Balance 650 -950 -500 CXR viewed, my personal interpretation is: no PNA CTA: no PE ECHO: normal ef - Physical Exam Constitutional: no apparent distress, appears nourished, not in pain Cardiovascular: regular rate and rhythym, no murmur, rub, or gallop Respiratory: no respiratory distress, no rales or rhonchi, clear to auscultation Gastrointestinal: normoactive bowel sounds, soft, non-tender abdomen, no palpable masses Skin: no rashes or abrasions, no fluctuance, no induration Neurologic: AAOx3, sensation intact bilaterally Psychiatric: interacting appropriately, not anxious, not encephalopathic, thought process linear ICD10 Worksheet Patient Problems: Problems Problem Status Onset Bronchitis Acute Elevated troponin Acute Shortness of breath Acute
[2016-05-15] MEDS: guaiFENesin/CODEINE PHOS 10 ML UDCUP PO PRN ×2 (00:26→08:19)
[2016-05-15] MEDS: IPRATROPIUM/ALBUTEROL 3 ML DEYVIAL IH SCH ×2 (05:20→10:38)
[2016-05-15] MEDS: AMOXICILLIN/CLAVULANATE POT 875/125 MG TAB PO SCH (08:10)
[2016-05-15] MEDS: guaiFENesin 600 MG TAB.ER PO SCH (08:10)
[2016-05-15] MEDS: CANDESARTAN CILEXETIL 8 MG TAB PO SCH (08:11)
[2016-05-15] MEDS: ENOXAPARIN 40 MG/0.4 ML SYR SC SCH (08:11)
[2016-05-15] MEDS: HYDROCHLOROTHIAZIDE 25 MG TAB PO SCH (08:11)
[2016-05-15] MEDS: predniSONE 20 MG TAB PO SCH (08:11)
[2016-05-15] MEDS: COLESTIPOL HCL 5 GM PO SCH (08:12)
[2016-05-15] MEDS ORDERED: GUAIFENESIN/DM 10 ML UDCUP PO PRN (10:05)
[2016-05-15] MEDS ORDERED: FLUTICASONE/SALMETER 250/50MCG DISKUS IH SCH (10:15)
[2016-05-15 11:17] VITALS: BP 159/85; PULSE 111; RESP 13; TEMP 97.5
[2016-05-15 13:55] VITALS: O2SAT 87
--- NOTE | 2016-05-15 18:51 | GDS ---
DISCHARGE DIAGNOSES: 1. Reactive airways disease exacerbation due to acute bronchitis. 2. Acute respiratory failure. 3. Coronary artery disease, status post stent. 4. Hyperlipidemia, statin refused. 5. Possible Enterococcus urinary tract infection. HISTORY: The patient is a 76-year-old female, who presented with cough and congestion with progress surendra shortness of breath due to reactive airways disease exacerbation. She had a slow clinical impro vement while being treated with steroids, nebulizers and antibiotics. She did have a possible Enter ococcus urinary tract infection, so we chose Augmentin as her antibiotic to cover both the bronchiti s and possible UTI. She did continue to require oxygen through hospital discharge, and this was arr anged for the home setting. CT angiogram of the chest performed was negative for PE. Her influenza was negative. She did have a mild troponin elevation, which I suspect was due to her hypoxemia. A n outpatient stress testing is recommended. She has known hyperlipidemia but refuses statin therapy . DISCHARGE MEDICATIONS: Please see computer record for full detailed list. New medications: 1. Augmentin 875 mg p.o. twice daily for 7 days. 2. Prednisone 40 mg p.o. daily for 3 more days. 3. Advair 250/50 one puff twice daily. 4. Albuterol 1-2 puffs q.4 hours as needed. 5. Guaifenesin with codeine 5-10 mL p.o. q.4 hours as needed. ADDITIONAL DISCHARGE INSTRUCTIONS: 1. Home oxygen to be continued until room-air saturation greater than 90%. 2. Outpatient cardiac stress testing. TIME: Greater than 30 minutes' time was spent arranging this discharge. Patient seen examined by jace santiago on the day of discharge. /[id number]/MODL
== END 2016-05-15 15:34 | disposition home or self-care (01) | DRG 202 ==
LOC: OBSVTOIN 15:12 → F2W 16:09
PROVIDERS: ADMIT Internal Medicine; ATTEND Internal Medicine
DX: J45.901 Unspecified asthma with (acute) exacerbation (principal); J96.00 Acute respiratory failure, unspecified whether with hypoxia or hypercapnia; N39.0 Urinary tract infection, site not specified; E78.5 Hyperlipidemia, unspecified; B95.2 Enterococcus as the cause of diseases classified elsewhere; D64.9 Anemia, unspecified; I10 Essential (primary) hypertension; Z95.5 Presence of coronary angioplasty implant and graft; Z87.891 Personal history of nicotine dependence
CPT/HCPCS: 96374; 97161-GP; 97165-GO; G8978-GP-CI; G8979-GP-CI; G8980-GP-CI; G8987-GO-CI; G8988-GO-CI; G8989-GO-CI; J0696; J1650; Q9967